=== PATIENT | female | born 1995 | race Caucasian/White ===

== ENCOUNTER 2018-06-28 14:11 | Observation (INO) ==
--- NOTE | 2018-06-28 15:44 | OB/GYN Progress Note ---
Date of Encounter: 06/28/18 Time of Encounter: 15:36 - Assessment and Plan (1) 38 weeks gestation of Current Visit: Yes Status: Acute (2) Decreased movement Current Visit: Yes Status: Acute Reactive NST, feeling movement in [facility]. Discharged home with labor and when to return to triage precautions. Qualifiers: Fetus number: single or unspecified fetus Trimester: third trimester Qualified Code(s): O36.8130 - Decreased movements, third trimester, not applicable or unspecified Subjective - Subjective Interval history: 38+6 presents to [facility] with complaints of decreased movement, has only felt a couple movements since yesterday, reports occasional contractions, denies vaginal bleeding or leaking of fluid, Antepartum ROS: contractions, no loss of fluid, no vaginal bleeding, no movement normal Objective - Vital Signs Vital Signs: Intake and Output 06/27/18 06/28/18 06/28/18 23:59 07:59 15:59 Other: Weight 95.345 kg Patient Weight 06/28/18 23:59 Weight 95.345 kg - Exam FHR: auscultation normal FHR comments: 125/moderate/+accels/-decels Abdomen: Present: soft, gravid Cervical dilation: 1/50/-2
== END 2018-06-28 16:00 | disposition home or self-care (01) ==
LOC: 1NENULAB
PROVIDERS: ADMIT Obstetrics & Gynecology; ATTEND Obstetrics & Gynecology

== ENCOUNTER 2018-07-03 11:08 | Inpatient (IN) ==
[2018-07-03 12:43] LABS: Amphetamine Screen,Urine Negative ng/mL (Cutoff=1000); Barbiturate Screen,Urine Negative ng/mL (Cutoff=200); Benzodiazepines Screen,Urine Negative ng/mL (Cutoff=200); Cannabinoid Screen,Urine Positive ng/mL (Cutoff = 50); Cocaine Screen,Urine Negative ng/mL (Cutoff= 300); Opiate Screen,Urine Negative ng/mL (Cutoff=300); Phencyclidine Screen,Urine Negative ng/mL (Cutoff=25)
--- NOTE | 2018-07-03 13:30 | Anesthesia Evaluation PreOp ---
Date of Encounter: 07/03/18 Time of Encounter: 13:22 - Past History Planned Operation: vaginal del, G1 induction Cardiac History: Denies any Significant Hx Pulmonary History: Denies Any Significant HX ELECTROPHYSIOLOGIST History: Denies Any Significant HX Other Medical History: Denies Any Significant HX (previous missed aborption.. started on ASA.) Anesthesia History: No Prior Anesthetic Complications, Past Anesthesia Alcohol Use: none Drug use: none Medications and Allergies Aspirin 81 mg PO DAILY 06/28/18 [History] Pnv95/Ferrous Fumarate/FA [ Vitamin Tablet] 1 mg PO DAILY 06/28/18 [ History] 3 Allergy/AdvReac Type Severity Reaction Status Date / Time No Known Allergies Allergy Verified 07/01/17 16:32 Anesthesia Exam - HEENT Pupil (Motor): Pupils equal Mallampati: II Teeth: Normal Oral Opening: Greater than 3 - ELECTROPHYSIOLOGIST LOC: Oriented ELECTROPHYSIOLOGIST Motor: Normal RUE, Normal LUE, Normal RLE, Normal LLE, Normal Face ELECTROPHYSIOLOGIST Sensory: Normal: RUE, LUE, RLE, LLE, Face - Cardiac Rhythm: Regular Murmur: None - Pulmonary Breath Sounds: bilateral Clear Respiratory Effort: Symmetrical Anesthesia Assess/Plan ASA Score: 2 Modified Fernanda Scale for Level of Consciousness: Cooperative, oriented, and tranquil Anesthetic Plan: General, Regional Monitoring Plan: Standard Monitors Recovery Plan: PACU
[2018-07-03] MEDS ORDERED: EPHEDrine 50 MG/ML VIAL IVP PRN (13:32)
[2018-07-03] MEDS ORDERED: Famotidine 20 MG/2 ML VIAL IVP PRN (13:37)
[2018-07-03] MEDS ORDERED: Naloxone 0.4 MG/ML INJ IVP PRN (13:37)
[2018-07-03] MEDS ORDERED: miSOPROStol 25 MCG TABLET PO PRN (13:37)
[2018-07-03] MEDS ORDERED: Metoclopramide 10 MG/2 ML VIAL IVP PRN (13:37)
[2018-07-03] MEDS ORDERED: Ringers Solution, Lactated 1,000 ML IVC SCH (13:45)
[2018-07-03] MEDS ORDERED: Epidural Premix (fent/bupiv) 110 ML EP SCH (13:45)
--- NOTE | 2018-07-03 13:48 | OB/GYN History & Physical ---
Date of Encounter: 07/03/18 Time of Encounter: 13:43 Assessment and Plan (1) 39 weeks gestation of Current visit: Yes Status: Acute Admit for IOL given second admission for decreased movement in last week. Pt clearly anxious at this time. Plan for cytotec IOL. Pt refusing care with Dr. Love. She is requesting care with CNM. POC discussed with Dr. Ga. (2) with history of multiple loss, antepartum Current visit: Yes Status: Acute (3) Decreased movement Current visit: No Status: Acute Qualifiers: Fetus number: single or unspecified fetus Trimester: third trimester Qualified Code(s): O36.8130 - Decreased movements, third trimester, not applicable or unspecified History of Present Illness Chief complaint: no movement for last 2 days HPI: Ms. Alvarado is a 23 year old female presenting at 39w1d with c/o no movement for last 2 days. She also reports some intermittent low back pain. No leaking, bleeding, or other complaints. Blood type O positive Serologies negative GBS negative Rubella immune Past Med Surg Social Fam HX - Past Medical History Medical history: no medical history Additional medical history: frequent nose bleeds Psychiatric history: anxiety, depression - Past Surgical History Surgical History: no surgical history Additional surgical history: D/C - Social History Smoking Status: Never smoker Smokeless Tobacco Status: No Alcohol use: none Drug use: none - Family History Sister Living Status: Still Living Hx Family Cardiac Disorders: Yes (her murmur) Hx Family Respiratory Disorders: No Hx Family Cancer: No Hx Family GI Disorders: No Hx Family Genitourinary Disorders: No Hx Family Endocrine Disorder: No Hx Family Musculoskeletal Disorders: No Hx Family Neuromuscular Disorders: No Hx Family Neurologic Disorders: No Hx Family HEENT Disorders: No Hx Family Autoimmune Disorders: No Hx Family Reproductive Disorders: No Hx Family Psychosocial Disorders: No Hx Family Medical Disorders: No Obstetrical History - Pregnancies : 3 Para: 0 Term: 0 : 0 Ab's: 2 Livin Medications and Allergies Aspirin 81 mg PO DAILY 06/28/18 [History] Pnv95/Ferrous Fumarate/FA [ Vitamin Tablet] 1 mg PO DAILY 06/28/18 [ History] 3 Allergy/AdvReac Type Severity Reaction Status Date / Time No Known Allergies Allergy Verified 07/01/17 16:32 Review of System OB All systems PM: reviewed and no additional remarkable complaints except as stated Exam - Constitutional Constitutional: well developed, well nourished - HEENT HEENT: Mucus Membranes Moist - Lungs Respiratory exam: CTAB - Cardiovascular Cardiovascular exam: RRR - Abdomen Abdomen: Present: gravid, non tender - Extremities Extremities exam: normal inspection - Vulva Vulva: bilateral: normal - Vagina Vagina: Present: normal moisture - Cervix Dilation: 3 Effacement: 50 Station: -2 - Anus/Rectum Anus/Rectum: Present: normal perianal skin Results Abnormal lab results U Marijuana (THC) Screen Positive ng/mL (Cutoff = 50) H 07/03/18 11:50 All other labs normal. - VTE Reasons for not Prescribing Prophylaxis: Treatment not Indicated - Low risk for VTE
[2018-07-03] MEDS ORDERED: Lidocaine -MPF 2% 5 ML VIAL ONE (14:26)
[2018-07-03 16:34] LABS: Basophils % 0.2 %; Eosinophils % 0.2 %; Hematocrit 39.3 % (35.3-44.9); Hemoglobin 13.4 g/dL (11.5-15.4); Immature Granulocytes % 1.1 % (0-4); Lymphocytes % 16.3 %; Mean Corpuscular HGB Conc 34.1 g/dL (31.6-35.5); Mean Corpuscular Hemoglobin 31.2 pg (28.0-33.3); Mean Corpuscular Volume 91.4 fL (83.0-100.0); Mean Platelet Volume 10.2 fL (9.4-12.4); Monocytes # 0.8 K/mcL (0.0-1.3); Monocytes % 6.1 %; Neutrophils # 9.4 K/mcL (1.6-8.9); Platelet Count 223 K/mcL (140-400); Red Cell Distribution Width 13.3 % (11.5-14.5); Segmented Neutrophils % 76.1 %
--- NOTE | 2018-07-03 17:19 | OB Labor Progress Note ---
Date of Encounter: 07/03/18 Time of Encounter: 17:18 Labor Progress Note - Subjective Subjective: Pt reports some back pain but denies pain with contractions. - Cervix Cervix: 4/70/-1 - Heart Tones Heart Tones: Category I - [place] Ang[place]: irregular - Interventions Interventions: AROM for moderate amount clear fluid - Plan Plan: Continue to monitor. Allow intermittent monitoring so pt may ambulate. Anticipate .
[2018-07-03] MEDS ORDERED: Oxytocin 20 units/ LR 1000 mL 20 UNIT/1,000 ML BAG IVC SCH (18:15)
[2018-07-03] MEDS ORDERED: Ondansetron 4 MG/2 ML VIAL IVP PRN (20:26)
[2018-07-03] MEDS ORDERED: Ondansetron 4 MG/2 ML VIAL ONE (20:30)
--- NOTE | 2018-07-03 22:53 | Anesthesia Procedures ---
Date of Encounter: 07/03/18 Time of Encounter: 19:47 Procedures: Anesthesia - Epidural/Spinal Patient ID/Chart reviewed: Yes Patient examined: Yes OB Eval: : 1 OB Eval: Hx Para: 0 OB Eval: Contractions: Non-stressed pattern Consent Obtained: Yes Supplemental Oxygen: None/Room Air Site Prep: Aseptic Technique, Sterile prep and drape, 0.5% Chlorhexidine/Alcohol Patient position: upright Local Anesthetic: Lidocaine 1% Amount of Local Anesthetic used: 2 Touhy Needle Gauge: 18 Touhy Needle Depth (cm): 6 Catheter Depth at Skin (cm): 10 Test Dose (1.5% Lido + Epi): Volume given (mls): 3 Test Dose Result: Negative Loading Dose: Other: 10ml from solution Loading Dose Administered: Thru Catheter Infusion Med: 0.125% Bupivacaine w/ 2 mcg/ml Fentanyl Infusion Rate (mls/hr): [address]: Tegaderm, Tape Interspace Used: L3-L4 Loss of Resistance (JORDAN): Yes (saline) Blood: No CSF: No Paresthesia: No Procedure: vss though out procedure, FHR stable per RN's
--- NOTE | 2018-07-04 04:40 | OB Labor Progress Note ---
Date of Encounter: 07/04/18 Time of Encounter: 04:38 Labor Progress Note - Subjective Subjective: Pt denies any pain or pressure with contractions. - Cervix Cervix: 9.5/100/0 - Heart Tones Heart Tones: Category I - [place]: every 2 minutes - Plan Plan: Continue to monitor. Allow passive descent. Anticipate .
[2018-07-04] MEDS ORDERED: Acetaminophen 325 MG TABLET PO ONE (06:58)
[2018-07-04] MEDS ORDERED: Ampicillin 2 GM in 0.9 % Sodium Chloride Mini Bag 100 ML IVPB ONE (07:04)
--- NOTE | 2018-07-04 08:31 | OB/GYN Procedure Note ---
Delivery - Delivery Date: 07/04/18 Provider: Tonya Davies Intrapartum events: febrile- temp >100.3 Delivery augmentation: rupture of membranes, pitocin Delivery monitor: external FHT, internal uterine Anesthesia: epidural Quantitated Blood Loss: 200 - Infant (s) Infant A Infant Delivery Date: 07/04/18 Infant Delivery Time: 08:30 Presentation: vertex Position: JORGE Route of delivery: Gender: Female Viability: Viable Pounds: 7 Ounces: 14 Weight Gram: 3.58 kg at 1 minute: 8 at 5 mins: 9 Shoulder Dystocia: not encountered Specimens collected: cord blood Placenta: spontaneous Cord: 3 umbilical vessels - Repair Episiotomy: none Laceration Description: Perineal - 1st Degree - Complications Delivery complications: meconium Delivery comments: Pt presented with regular contractions and underwent AROM, epidural, and pitocin augmentation. She pushed effectively to [facility] for viable female weighing 7lbs 14oz with apgars 8 at one minutes and 9 at five minutes. After pulsations ceased the cord was clamped and cut and the placenta delivered spontaneous and intact. A first degree laceration was repaired with 2-0 moncryl. Slow trickle of bleeding noted. Cytotec 200mg PO given. EBL 200. Mother and baby stable in kangaroo care following procedure. Pt spiked one temperature to 100.6 during labor but was afebrile immediately following delivery. She received one dose of Tylenol and ampicillin prior to delivery. - Disposition Mom disposition: stable in LDR disposition: stable in LDR
[2018-07-04] MEDS ORDERED: Benzocaine/Menthol 56 GM AEROSOL SPRAY TP PRN (12:55)
[2018-07-04] MEDS ORDERED: Oxytocin 20 units/ LR 1000 mL 20 UNIT/1,000 ML BAG IVC SCH (12:55)
[2018-07-04] MEDS ORDERED: Ibuprofen 600 MG TABLET PO PRN (12:55)
[2018-07-04] MEDS ORDERED: Prenatal Vit/FA 1 EACH TABLET PO SCH ×2 (12:55)
[2018-07-04] MEDS ORDERED: Lanolin 7 G OINT...G. TP PRN (12:55)
[2018-07-04] MEDS ORDERED: miSOPROStol 100 MCG TABLET PO ONE (13:44)
[2018-07-04] MEDS: Aspirin 81 MG TAB.CHEW PO SCH (20:25)
[2018-07-05 06:54] LABS: Basophils % 0.2 %; Eosinophils # 0.1 K/mcL (0.0-0.6); Eosinophils % 0.5 %; Hemoglobin 12.9 g/dL (11.5-15.4); Immature Granulocytes % 0.9 % (0-4); Lymphocytes # 3.1 K/mcL (0.6-4.6); Lymphocytes % 18.3 %; Mean Corpuscular HGB Conc 33.9 g/dL (31.6-35.5); Mean Corpuscular Hemoglobin 31.2 pg (28.0-33.3); Mean Corpuscular Volume 91.8 fL (83.0-100.0); Mean Platelet Volume 10.3 fL (9.4-12.4); Monocytes # 1.4 K/mcL (0.0-1.3); Monocytes % 8.5 %; Platelet Count 207 K/mcL (140-400); Red Blood Count 4.14 M/mcL (3.82-4.97); Red Cell Distribution Width 13.3 % (11.5-14.5); Segmented Neutrophils % 71.6 %
[2018-07-05 08:07] VITALS: BP 109/67
[2018-07-05] MEDS: Aspirin 81 MG TAB.CHEW PO SCH (09:45)
--- NOTE | 2018-07-05 10:10 | Discharge Summary ---
Date of Encounter: 07/05/18 Time of Encounter: 10:10 - Discharge Diagnosis (1) Vaginal delivery Priority: Primary Status: Acute - Discharge Medications Prescriptions: Ibuprofen [Motrin] 600 mg PO Q6HR PRN #30 tablet PRN Reason: Cramping Breast Pump [BREAST PUMP] 1 each .ROUTE AD #1 each Docusate [Colace] 100 mg PO BID PRN #30 capsule PRN Reason: Constipation Ferrous Sulfate 325 mg PO DAILY #90 tablet Home Medications: Aspirin 81 mg PO DAILY 06/28/18 [History] Pnv95/Ferrous Fumarate/FA [ Vitamin Tablet] 1 mg PO DAILY 06/28/18 [ History] Benzocaine/Menthol [place] [Dermoplast [place]] 1 appl TP QID PRN aerosol 07/05/18 [Rx] Breast Pump [BREAST PUMP] 1 each .ROUTE AD #1 each 07/05/18 [Rx] Docusate [Colace] 100 mg PO BID PRN #30 capsule 07/05/18 [Rx] Ferrous Sulfate 325 mg PO DAILY #90 tablet 07/05/18 [Rx] Ibuprofen [Motrin] 600 mg PO Q6HR PRN #30 tablet 07/05/18 [Rx] Lanolin [Lansinoh] 1 appl TP QID PRN oint...g. 07/05/18 [Rx] Allergies/Adverse Reactions: 3 Allergy/AdvReac Type Severity Reaction Status Date / Time No Known Allergies Allergy Verified 07/01/17 16:32 Data Procedures and tests throughout hospitalization: Laboratory Tests 07/03/18 07/03/18 07/05/18 11:50 15:45 06:36 WBC 12.4 H 16.8 H RBC 4.30 4.14 Hgb 13.4 12.9 Hct 39.3 38.0 MCV 91.4 91.8 MCH 31.2 31.2 MCHC 34.1 33.9 RDW 13.3 13.3 Plt Count 223 207 MPV 10.2 10.3 Immature Gran % 1.1 0.9 Seg Neutrophils % 76.1 71.6 Lymphocytes % 16.3 18.3 Monocytes % 6.1 8.5 Eosinophils % 0.2 0.5 Basophils % 0.2 0.2 Neutrophils # 9.4 H 12.0 H Lymphocytes # 2.0 3.1 Monocytes # 0.8 1.4 H Eosinophils # 0.0 0.1 Basophils # 0.0 0.0 Urine Opiates Screen Negative Ur Barbiturates Screen Negative Ur Phencyclidine Scrn Negative Ur Amphetamines Screen Negative U Benzodiazepines Scrn Negative Urine Cocaine Screen Negative U Marijuana (THC) Screen Positive H Ur Drug Screen Interp See Below Labs on day of discharge: Labs from last 24 hours 07/05/18 06:36 WBC 16.8 H RBC 4.14 Hgb 12.9 Hct 38.0 MCV 91.8 MCH 31.2 MCHC 33.9 RDW 13.3 Plt Count 207 MPV 10.3 Immature Gran % 0.9 Seg Neutrophils % 71.6 Lymphocytes % 18.3 Monocytes % 8.5 Eosinophils % 0.5 Basophils % 0.2 Neutrophils # 12.0 H Lymphocytes # 3.1 Monocytes # 1.4 H Eosinophils # 0.1 Basophils # 0.0 Date of admission: 07/03/18 11:08 Primary care physician: Bruna Rosenberg Consults: 07/04/18 12:55 Consult to Assembler Fitter [CONS] Routine Comment: Vaginal delivery, consult needed Discharging clinician: Reba Stewart Anticipated date of discharge: 07/05/18 - Patient Status Disposition: Home, Self-Care Condition: Good Functional capacity at discharge: independent ambulation Overall status at discharge: patient is back to baseline - Discharge Instructions Follow Up With: Yamini Restrepo DO [Primary Care Provider] - Tonya Davies CNM [Non-Partnered Physician] - - Diet and Activity Activity: increase activity as tolerated Diet: advance to your usual diet Hospital Course Reason for admission: IUP at term, other (decreased movement) Delivery: Episiotomy: none Laceration: 1st degree Other procedures: none complications: none Discharge diagnosis: IUP at term delivered baby: female Time Attestation: Total time spent providing and/or coordinating discharge services: Time Spent: Less than 30 minutes Exam - Constitutional Vitals: Temp Pulse Resp BP Pulse Ox 98 F 83 12 109/67 98 07/05/18 07:50 07/05/18 07:50 07/05/18 07:50 07/05/18 07:50 07/05/18 07:50 General appearance IM: A&O X 0 - Respiratory Respiratory exam: Present: CTAB - Cardiovascular Cardiovascular exam IM: Present: RRR, +S1, +S2 - GI/Abdominal GI/Abdominal exam IM: soft, no peritoneal signs - Uterine Tone: Firm Uterus Position: At Umbilicus, Midline - Extremities Exam Extremities exam IM: Absent: calf tenderness, pedal edema - Neurological Exam Neurological exam: alert, oriented X3 - Attending Attestation I examined this patient and my medical decision-making was reviewed with the Resident Physician. I agree with the documented findings, disposition and treatment plan as described except to the extent set forth below. Abril Stewart CNM
== END 2018-07-05 13:45 | disposition home or self-care (01) | DRG 560 ==
LOC: 1NENULAB → OBSVTOIN 11:08 → 1NENULAB 12:44 → 1NENUOBS 07-04 11:48
PROVIDERS: ADMIT Registered Nurse; ATTEND Registered Nurse